=== PATIENT | female | born 1995 | race Hispanic/Latino ===

== ENCOUNTER → 2017-05-30 | Outpatient (CLI) | payer BC ==
--- NOTE | 2017-05-30 15:29 | Diagnostic Imaging Report ---
PROCEDURE:US RETROPERITONEAL ( KIDNEY ). COMPARISON:None. INDICATIONS:Left Flank Pain TECHNIQUE: Rivera-scale and color sonographic images of the bilateral kidneys and bladder where obtained in transverse and longitudinal planes. FINDINGS: RIGHT KIDNEY: 9.6 x 3.4 x 3.4 cm, cortex 1.2cm Cysts: None Solid masses: None Stones: None Hydronephrosis: None Echogenicity: Normal LEFT KIDNEY: 9.2 x 4.4 x 3.9 cm, cortex 1.2 cm Cysts: None Solid masses: None Stones: None Hydronephrosis: None Echogenicity: Normal Bladder: Normal. Slight protuberance at bilateral ureteral orifices, suggestive of tiny ureteroceles. CONCLUSION: Normal kidneys. Dictated by: Jeff Jordan M.D. on 05/30/2017 at 15:28 Electronically approved by: Jeff Jordan M.D. on 05/30/2017 at 15:28
== END ==
LOC: US 14:30
PROVIDERS: ATTEND Family Medicine
DX: R10.9 Unspecified abdominal pain (principal)
CPT/HCPCS: 76770